=== PATIENT | male | born 1945 | race African-American/Black ===

== ENCOUNTER 2024-03-06 05:33 | Emergency (ER) | payer MEDICARE ==
[~2024-03-06] VITALS: Ht 182.9 cm; Wt 72.5 kg
[2024-03-06] MEDS ORDERED: TAMSULOSIN0.4 MG PO (05:51)
[2024-03-06] MEDS ORDERED: METOPROLOL100 M1 PO (05:51)
[2024-03-06] MEDS ORDERED: FARXIGA5 MG PO (05:53)
[2024-03-06] MEDS ORDERED: OXYCODONE5 M1 PO (05:54)
[2024-03-06] MEDS ORDERED: AMLODIPINE BESYL5 MG PO (05:55)
[2024-03-06] MEDS ORDERED: PROSCAR5 MG PO (05:56)
[2024-03-06] MEDS ORDERED: ZESTRIL10 M1 PO (05:57)
[2024-03-06 06:04] LABS: EOS% 14.2 % (0-8); HEMATOCRIT 41.1 % (39.0-50.0); HEMOGLOBIN 12.9 g/dl (14.0-18.0); IMMATURE GRANULOCYTES 0.2 % (0.0-5.0); LYMPH% 36.9 % (15-41); MEAN CELL VOLUME 75.8 fL CALC (80.0-100.0); MEAN CORPUSCULAR HGB 23.8 pG CALC (26.0-32.0); MEAN CORPUSCULAR HGB CONC 31.4 g/dL CAL (32.0-36.0); MONO% 9.6 % (2-13); NEUT# 2.18 thou/uL (1.82-7.42); NEUT% 38.1 % (42-76); RED BLOOD COUNT 5.42 mill/uL (4.70-6.10); RED CELL DISTRI WIDTH 15.1 % (11.5-15.5)
[2024-03-06 06:13] LABS: ALBUMIN 3.9 g/dL (3.2-5.0); BILIRUBIN, TOTAL 0.4 mg/dL (0.2-1.3); CREATININE 0.8 mg/dL (0.7-1.3); POTASSIUM 4.3 mmol/l (3.5-5.1); TOTAL PROTEIN 7.9 g/dL (6.3-8.2)
[2024-03-06] MEDS ORDERED: Acetaminophen 300 MG/Codeine 30 MG/COMBO PO ONE (06:35)
[2024-03-06 07:46] VITALS: BP 144/70
[2024-03-06 08:22] VITALS: BP 105/64
[2024-03-06 08:52] LABS: URINE BILIRUBIN - DIPSTICK Negative (NEGATIVE); URINE BLOOD DIPSTICK Moderate (NEGATIVE); URINE GLUCOSE - DIPSTICK >=1000 mg/dL (NEGATIVE); URINE KETONE Negative (NEGATIVE); URINE NITRITE - DIPSTICK Negative (Negative); URINE PH 7.5 (4.5-8.0); URINE PROTEIN - DIPSTICK 30 mg/dL (NEG-TRACE); URINE UROBILINOGEN - DIPSTICK 0.2 E.U./dL (0.2)
[2024-03-06 09:01] VITALS: BP 137/107
[2024-03-06 09:08] VITALS: BP 135/79
[2024-03-06 09:16] LABS: URINE COLOR Yellow; URINE LEUK ESTERASE Small (NEGATIVE)
[2024-03-06 09:17] LABS: URINE BACTERIA MODERATE hpf; URINE EPITHELIAL CELLS FEW EPI/hpf (0-FEW); URINE RBC 25-50 RBC/hpf (0-5)
[2024-03-06] MEDS ORDERED: CEPHALEXIN500 M1 PO (09:30)
[2024-03-06 09:34] VITALS: BP 135/79
== END 2024-03-06 09:41 | disposition home or self-care (01) ==
LOC: ED 05:33
PROVIDERS: Family Medicine
DX: N39.0 Urinary tract infection, site not specified (principal); B96.20 Unspecified Escherichia coli [E. coli] as the cause of diseases classified elsewhere; I10 Essential (primary) hypertension; E11.9 Type 2 diabetes mellitus without complications; N40.1 Benign prostatic hyperplasia with lower urinary tract symptoms; R35.0 Frequency of micturition